=== PATIENT | male | born 1935 | race Caucasian/White ===

== ENCOUNTER → 2017-02-10 | Day surgery (SDC) | payer BC, MEDICARE ==
[~2017-02-10] VITALS: Ht 182.9 cm; Wt 81.8 kg
[~2017-02-10] MED LIST: AMB10 PO; ASPI81TA28 PO; FEXO3TAB PO; IPRA1AER2 INH; LIDOCAINE HCL 2% 2 ML VIAL (20MG/ML) ONE; LSX40 PO; MULT-506 PO; POTA-327 PO; PROPOFOL IV EMULSION 10 MG/ML 20 ML VIAL IV ONE; RIVA1TAB4 PO; SILD100T PO; SOTA120T PO; TNR25 PO; VLM2 PO; ZCR10 PO
[2017-02-10 06:55] VITALS: BP 134/94; PULSE 78; TEMP 36.5; O2SAT 95
[2017-02-10 07:14] VITALS: Ht 182.9 cm; Wt 81.8 kg
--- NOTE | 2017-02-10 07:15 | History & Physical Bridge Note ---
H&P Re-Evaluation Bridge Note: I have examined the patient, reviewed the History & Physical and in the interval since the performance of the History & Physical I have noted the following changes of clinical significance: Still in AF
[2017-02-10 07:51] VITALS: BP 125/91; PULSE 98; O2SAT 99
[2017-02-10 07:54] VITALS: BP 129/80; PULSE 70; O2SAT 99
--- NOTE | 2017-02-10 08:08 | Anesthesiology Progress Note ---
Anesthesia Post Op Note Date & Time Feb 10, 2017 at 08:07 Vital Signs Pain Intensity: 0 Vital Signs Past 12 Hours Date Time Temp Pulse Resp B/P (MAP) Pulse Ox O2 Delivery O2 Flow Rate FiO2 02/10/17 07:56 72 16 122/83 (96) 99 Nasal Cannula 6 02/10/17 07:54 70 16 129/80 99 Nasal Cannula 6 02/10/17 07:51 98 16 125/91 99 Nasal Cannula 02/10/17 06:55 36.5 78 16 134/94 95 Room Air Notes Mental Status: alert / awake / arousable, participated in evaluation Pt Amnestic to Procedure: Yes Nausea / Vomiting: adequately controlled Pain: adequately controlled Airway Patency, RR, SpO2: stable & adequate BP & HR: stable & adequate Hydration State: stable & adequate Anesthetic Complications: no major complications apparent
--- NOTE | 2017-02-10 08:12 | Discharge Instructions ---
Discharge Instructions Procedure Procedure Date: Feb 10, 2017. Reason for Visit: *,W/Anesthesia A Fib. Discharge Discharge Date: Feb 10, 2017. Discharge Diagnosis: atrial fibrillation Last Recorded Wt (Kilograms): 81.8 Medications Stopped Medication(s): none Anesthesia Post Anesthesia Instructions: If you have had General Anesthesia or IV Sedation: * Do not drive today. * Resume driving when surgeon permits. * Do not make important decisions or sign legal documents today. * Call surgeon for: 1. Temperature elevations greater than 101 degrees F. 2. Uncontrollable pain. 3. Excessive bleeding. 4. Persistent nausea and vomiting. 5. Medication intolerance (nausea, vomiting or rash). * For nausea and vomiting use only clear liquids such as: tea, soda, bouillon until nausea subsides, then gradually increase diet as tolerated. * If you have any concerns or questions, call your surgeon's office. If physician is unavailable and it is an emergency, call 911 or go to the nearest emergency room. Instructions Activity Recommendations: driving or machine use limit Return to School/Work: with no limitations Recommended Home Diet: resume previous diet Allergies: Coded Allergies: No Known Allergies (Unverified , 07/17/16) Follow Up [facility] Recommendations: Call your doctor if: * Temperature above 101 degrees * Pain not relieved by pain medicine ordered * There is increased drainage or redness from any incision * You have any unanswered questions or concerns. Your Doctors Instructions noted above were prepared by provider Matt Giles. Patient Signature Section: Patient Instructions Signature Page Kwesi Mayfield Patient (or Guardian) Signature/Date: I have read and understand the instructions given to me by my caregivers. Caregiver/RN/Doctor Signature/Date: The above-named patient and/or guardian has received patient instructions on this date. + Original Patient Signature Page (only) stays with chart. Please make copy for patient.
[2017-02-10 08:41] VITALS: BP 109/70; PULSE 68; O2SAT 98
--- NOTE | 2017-02-10 09:15 | CARDIOVERSION ---
DATE OF OPERATION: 02/10/2017 CARDIOVERSION REPORT PROCEDURE PERFORMED: Electrical cardioversion. STAFF COPYING MACHINE REPAIRER: Dr. Rodrigo Giles. INDICATIONS: Mr. Kwesi Mayfield is an 81-year-old gentleman with a history of paroxysmal atrial fibrillation who recently experienced symptoms associated with return of his arrhythmia. The patient is on sotalol and Xarelto and based on the recurrent nature of his arrhythmia and the associated symptoms he was advised to consider cardioversion today. PROCEDURE IN DETAIL: The patient was informed of the risks, benefits and alternatives to the intended procedure. He understood such and wished to proceed. He was taken to the cardiac catheterization holding area in a fasting state. A general anesthetic was administered by the anesthesiology service and once appropriately anesthetized the patient underwent cardioversion using 200 joules delivered in a biphasic fashion. This returned the patient to a sinus rhythm. The patient was neurologically intact following the procedure. There were no immediate complications. IMPRESSION: Successful cardioversion from atrial fibrillation to normal sinus rhythm. I attest to the content of the Intraoperative Record and any orders documented therein. Any exception s are noted below.
--- NOTE | 2017-02-10 09:16 | CARDIOLOGY PROGRESS NOTE ---
DATE: 02/10/2017 DATE: 02/10/2017. I performed a complete pacemaker interrogation with the patient's dual chamber [employer] device. The patient had normal sensing and threshold parameters on both leads subsequent to cardioversion. A complete report was printed out and scanned into the medical record.
== END | disposition home or self-care (01) ==
LOC: C.CATH 06:48
PROVIDERS: ATTEND Internal Medicine Clinical Cardiac Electrophysiology
DX: I48.91 Unspecified atrial fibrillation (principal); I25.10 Atherosclerotic heart disease of native coronary artery without angina pectoris; I51.9 Heart disease, unspecified; E78.5 Hyperlipidemia, unspecified; I10 Essential (primary) hypertension; R06.02 Shortness of breath; Z95.0 Presence of cardiac pacemaker; Z82.0 Family history of epilepsy and other diseases of the nervous system; Z83.49 Family history of other endocrine, nutritional and metabolic diseases; Z82.49 Family history of ischemic heart disease and other diseases of the circulatory system; Z95.5 Presence of coronary angioplasty implant and graft

== ENCOUNTER → 2017-03-31 | Outpatient (CLI) | payer BC, MEDICARE ==
[~2017-03-31] MED LIST changes: -ASPI81TA28 PO; -FEXO3TAB PO; -IPRA1AER2 INH; -LIDOCAINE HCL 2% 2 ML VIAL (20MG/ML) ONE; -MULT-506 PO; -PROPOFOL IV EMULSION 10 MG/ML 20 ML VIAL IV ONE; -TNR25 PO; -VLM2 PO
--- NOTE | 2017-03-31 12:19 | DIAGNOSTIC IMAGING REPORT ---
CHEST 2 VIEWS ROUTINE HISTORY: Left-sided chest pain. COMPARISON: Chest CT 07/20/2016. FINDINGS: The heart is normal in size. Left-sided dual-chamber pacemaker. No pleural effusions. No pneumothorax. The left lung appears clear. No rib fractures identified. Hazy patchy airspace opacities within the right upper lobe. IMPRESSION: 1. No pneumothorax. 2. There are new hazy patchy airspace opacities within the right upper lobe. This could represent a pneumonia. Follow-up chest x-ray or chest CT in one month is recommended to ensure resolution. Electronically signed by: Alex John M.D. 03/31/2017 12:18 PM Dictated Date/Time: 03/31/2017 12:15 PM
== END | disposition home or self-care (01) ==
LOC: C.RAD1850 11:37
PROVIDERS: ATTEND Student in an Organized Health Care Education/Training Program
DX: R07.9 Chest pain, unspecified (principal); R93.8 Abnormal findings on diagnostic imaging of other specified body structures

== ENCOUNTER 2024-07-19 10:22 | Observation (INO) ==
[2024-07-19] MEDS: OPTIRAY 320 125ml IV ONE (10:29)
--- NOTE | 2024-07-19 10:46 | CT Scan Report ---
CT head/brain wo con CLINICAL HISTORY: 89 years-old Male with Neuro deficit, acute, stroke suspected. Acute stroke like s ymptoms TECHNIQUE: Multiple axial CT images of the head were obtained without contrast. A dose lowering tech nique was utilized adhering to the principles of ALARA. CT DOSE: 2068.67 mGy.cm COMPARISON: CTA head and neck of same day FINDINGS: No acute intracranial hemorrhage, midline shift, intracranial mass, hydrocephalus, territorial ischem ia or abnormal extra-axial collection. Involutional changes with chronic microvascular ischemic disea se. Chronic left thalamic lacunar infarct. The calvarium is intact. Mild mucosal thickening of the ethmoid air cells. The mastoid air cells are clear. Unremarkable soft tissues. IMPRESSION: No acute intracranial abnormality identified. ACT 112: Negative or not required by law. The above report was generated using voice recognition software. It may contain grammatical, syntax o r spelling errors. Electronically signed by: Arpan Cox M.D. 07/19/2024 10:44 AM
--- NOTE | 2024-07-19 10:51 | CT Scan Report ---
CT angio neck with con CLINICAL HISTORY: 89 years-old Male with R sided facial droopp. Acute stroke like symptoms COMPARISON STUDY: CTA of the head of same day, chest radiograph of same day TECHNIQUE: Following the IV administration of 119 mL of Optiray, CT angiogram of the neck was perform ed from the aortic arch to the skull base. Images are reviewed in the axial, sagittal, and coronal pl anes. 3-D MIPS images are created and assessed. IV contrast was administered without complication. Al l measurements were calculated based on NASCET criteria. A dose lowering technique was utilized adhe ring to the principles of ALARA. FINDINGS: Moderate atherosclerosis of the thoracic aortic arch. Atherosclerosis of the common carotid arteries without high-grade stenosis. Moderate to advanced atherosclerotic plaque of the left carotid bulb cau ses 50% stenosis of the proximal cervical segment left ICA. Extensive atherosclerosis of the right ca rotid bulb causes 80% stenosis of the proximal right ICA. The remaining internal carotid arteries angela ear patent. Calcified plaque causes high-grade stenosis at the origin of the vertebral arteries which are codomin ant and otherwise patent. Patent basilar artery. There are layering pleural effusions, right greater than left. No pneumothorax. Suggested pulmonary e petrona with dependent atelectasis. Subcentimeter hypodense thyroid nodules. Degenerative changes of the cervical spine. Mild mucosal thickening of the paranasal sinuses. IMPRESSION: 1. Severe atherosclerosis of the right carotid bulb results in high-grade stenosis within the proxima l cervical segment right ICA. 2. High-grade stenosis also noted at the origin of the vertebral arteries bilaterally. 3. Right greater than left layering pleural effusions with probable pulmonary edema. ACT 112: Negative or not required by law. The above report was generated using voice recognition software. It may contain grammatical, syntax o r spelling errors. Electronically signed by: Arpan Cox M.D. 07/19/2024 10:48 AM
--- NOTE | 2024-07-19 10:55 | CT Scan Report ---
CTA ANGIOGRAPHY OF THE HEAD CLINICAL HISTORY: Right-sided facial droop. COMPARISON STUDY: No previous studies for comparison. TECHNIQUE: Helical axial images of the head were obtained following uneventful intravenous administr ation of 119 cc of Optiray. Sagittal and coronal reconstructions were viewed as well as maximal inten sity projections on an independent 3-D workstation. Automated exposure control was utilized for the study. A dose lowering technique was utilized adhering to the principles of ALARA. FINDINGS: Please note that the head CT will be reported separately. The bilateral M1, M2, A1 and A2 s egments are patent. There is moderate atherosclerotic plaque within the bilateral cavernous carotids which results in mild stenosis. No vessel occlusion is identified on this examination. The posterior circulation is intact. There is no intracranial aneurysm. There is no dissection within the intracran ial vessels. IMPRESSION: No large vessel occlusion. No intracranial aneurysm. ACT 112: Negative or not required by law. Electronically signed by: Mehran Aponte M.D. 07/19/2024 10:53 AM
--- NOTE | 2024-07-19 11:02 | CT Scan Report ---
CT facial bones w con CLINICAL HISTORY: Facial droop; ?dental infection COMPARISON STUDY: No previous studies for comparison. TECHNIQUE: Axial images of the face were obtained following intravenous injection of 119 cc Optiray 3 20 IV. Sagittal and coronal reformats were viewed. Automated exposure control was utilized for the st udy. A dose lowering technique was utilized adhering to the principles of ALARA. FINDINGS: Please note that the CTA of the neck and head will be reported separately. There are severa l dental caries. Multiple teeth are absent. Moderate mucosal thickening of the right maxillary sinus is noted. There is right facial stranding overlying the anterolateral aspect of the right hemimandibl e and maxilla. No rim-enhancing fluid collection is identified to suggest an abscess. There is no sof t tissue gas. Epiglottis is normal. The parotid and submandibular glands are normal. IMPRESSION: Several dental caries and multiple absent teeth. Right facial inflammation consistent wit h cellulitis, likely odontogenic in etiology. No abscess identified. ACT 112: Negative or not required by law. Electronically signed by: Mehran Aponte M.D. 07/19/2024 11:00 AM
--- NOTE | 2024-07-19 11:08 | Emergency Department Note ---
Impression & Plan Facial droop, Carotid stenosis, right, Stenosis of both vertebral arteries, History of atrial fibrillation, Pneumonia, Dental caries ED Provider Note NAME: RUIZ URENA AGE: 89 SEX: M : 1935 ARRIVES VIA: Ambulance INFORMANT: Patient, EMS report ED PROVIDER(S): Gabino Blount MD CHIEF COMPLAINT: Stroke alert MEDICAL DECISION MAKING: Patient presents due to concern for stroke alert and right-sided facial droop. No other acute symptoms at this time. Patient is on Eliquis not a TNK candidate. IV was established and blood work was obtained patient was immediately taken to CAT scan. No obvious bleed on noncontrast CT of the head. Blood work shows a white count of 11.5. Hemoglobin of 13.3. The patient's platelet count is unremarkable. INR of 1.6. Kidney function is unremarkable electrolytes grossly unremarkable with BSG 105. Patient's chest x-ray did show concern for pleural effusion possible pneumonia at the right base. Patient's face CT does show dental carious and facial inflammation no evidence of abscess. The patient's Noncon CT of the head read as negative CT of the head negative. The patient's neck CTA did show atherosclerosis 80% narrowing of the proximal right ICA as well as high-grade stenosis of the origin of vertebral arteries bilaterally. Given these findings I did speak with telestroke Dr. Pearson did evaluate the patient via telestroke. Patient current NIH only positive for the patient's right-sided facial droop. After further discussion with Dr. Pearson she recommended aspirin and atorvastatin to be given now. She was recommended MRI echocardiogram lipid panel A1c. Recommendations as conveyed were forwarded to the inpatient medicine service. She recommended nonemergent vascular consultation for the narrowing. This does not require emergent transfer at this time. Patient reportedly does have a history of aspiration and given the findings on chest x-ray the patient was ordered Augmentin. I did convey this to the patient and the patient's family member at bedside and subsequently did speak with the on-call medicine service Dr. Johnson and the patient was admitted to medicine service. Critical Care: I have personally spent 40 minutes of critical care time in direct management of this patient. This includes bedside care, interpretation of diagnostic studies, and testing, discussion with consultants, patient, and family members, and other require inpatient management activities. This 40 minutes is in excess of all separately billable procedures. Discussion w/ other healthcare providers: Dr. Pearson telestroke neurology Dr. Johnson inpatient medicine service Prior /Outside records reviewed: None Differential diagnosis: Infection, dehydration, metabolic abnormality, hypo/hyperglycemia, electrolyte imbalance, anemia, UTI, pneumonia, thyroid dysfunction among others were considered. Diagnostics, as interpreted by me: ECG: V paced rhythm, rate of 70, wide QRS, left axis deviation right bundle branch block pattern. No obvious STEMI. Cardiac monitoring: An order was placed for continuous cardiac monitoring. The monitor shows a rate of 72 with paced rhythm. Patient was placed on pulse oximetry Medical decision rules: None Imaging studies: I informally interpreted the patient's CT head does not show obvious ICH with formal report to follow. HPI: Patient presents due to concern for right-sided facial droop. Initial EMS report was that he woke up at 7 was normal went back to bed and then when he woke up he had right-sided facial droop. The patient did have concerns for recent right-sided dental infection and was seen yesterday by the dentist and started on amoxicillin. Patient states that he does have some associated right- sided upper dental pain. The patient denies any numbness or weakness of any extremity. No headache or neck pain. Last time that he had a fall was several months ago. Patient does take Eliquis chronically. Patient did have a prior stroke but was able to rehab through any deficits and did not have any. Per patient he woke up around 945 and his noticed that he had some right-sided facial drooping. Patient has not had any associated dysarthria or aphasia. EMS did not notice any other findings with the exception of the right-sided facial droop. PAST MEDICAL HISTORY: See Below PAST SURGICAL HISTORY: See Below SOCIAL HISTORY: See Below HOME MEDICATIONS: See Below ALLERGIES: See Below VITALS: See Below PHYSICAL EXAMINATION: GENERAL: NAD, non-toxic. EYE EXAM: Normal conjunctiva. PERRL, no anisocoria and EOM's grossly intact w/o pain. OROPHARYNX: Moist mucus membranes, grossly normal dentition. NECK: Trachea midline, no stridor. Supple, no nuchal rigidity, no adenopathy, non-tender. No signs of meningismus. FROM of the neck with good chin to chest and neck extension. Chest: Device noted to the left chest LUNGS: Clear to auscultation. Normal chest wall mechanics. HEART: Regular rhythm, no MRG. ABDOMEN: Abdomen soft, non-tender, no masses, no rebound or guarding. BACK: No CVA TTP. SKIN: No rashes and no bruising. UPPER EXTREMITIES: Upper extremities are grossly normal. LOWER EXTREMITIES: Grossly normal, no edema. NEURO EXAM: A&O x3, cranial nerves II-XII grossly intact with the exception of right-sided facial droop with asymmetric grimace but able to raise his eyebrows and insufflate his cheeks, normal speech, moves all 4 extremities. Past Med/Surg History Problem List (Updated 07/19/24 @ 15:23 by Gabino Blount MD) History of atrial fibrillation (Acute) Stenosis of both vertebral arteries (Acute) Carotid stenosis, right (Acute) Facial droop (Acute) Dental caries (Acute) Pneumonia (Acute) Stroke-like symptoms Pacemaker Stented coronary artery Paroxysmal atrial fibrillation Atrial fibrillation (Chronic) Coronary artery disease Diastolic dysfunction Hyperlipidemia Hypertension Insomnia Atrial fibrillation Acute right eye pain (Acute) Medical History Diverticulitis Hernia, inguinal, right Social History Smoking Status: Unknown if ever smoked Tobacco Type: Pipe and Cigars Preferred Language: Uzbek Feels Safe at Home: Yes Allergies Allergies Allergy/AdvReac Type Severity Reaction Status Date / Time Milk Containing Products Allergy Severe Cow's Unverified 07/19/24 13:28 (Dairy) cream/Butter/Cream - GI Upset Home Meds Home Medications Medication Instructions Recorded Confirmed aspirin 81 mg chewable tablet 81 mg PO DAILY #30 tabs 05/10/19 07/19/24 rivaroxaban 20 mg tablet 20 mg PO DAILY #90 tabs 05/10/19 07/19/24 zolpidem 10 mg tablet 10 mg PO HS PRN sleep 05/10/19 07/19/24 cholecalciferol (vitamin D3) 50 50 mcg PO DAILY 07/08/22 07/19/24 mcg (2,000 unit) capsule (Vitamin D3) multivitamin 1 tab PO DAILY 07/08/22 07/19/24 furosemide 20 mg tablet 20 mg PO DAILY 05/03/24 07/19/24 atorvastatin 40 mg tablet 40 mg PO HS 07/19/24 07/19/24 losartan 25 mg tablet 12.5 mg PO DAILY 07/19/24 07/19/24 penicillin V potassium 500 mg 500 mg PO QID 07/19/24 07/19/24 tablet sotalol 80 mg tablet 80 mg PO BID 07/19/24 07/19/24 Results & Data (ED) Vital Signs Vital Signs - 24 hr 07/19/24 10:22 07/19/24 10:48 07/19/24 12:23 Temperature 36.6 C Temperature Source Oral Pulse Rate 70 81 Pulse Rate [Apical] Respiratory Rate 18 Respiratory Effort / Characteristics Non-Labored Spontaneous Respiratory Depth Normal Respiratory Pattern Regular Blood Pressure 135/73 Blood Pressure [Right Arm] Blood Pressure Mean 93 Blood Pressure Mean [Right Arm] Blood Pressure Position [Right Arm] Pulse Oximetry 95 Oxygen Delivery Method Room Air Sepsis Recent Fever Within 48 Hours No Sepsis New/Unexplained Change in Mental Status No Sepsis Action Taken by Nursing No Action Required 07/19/24 12:27 07/19/24 14:16 Temperature Temperature Source Pulse Rate Pulse Rate [Apical] 73 75 Respiratory Rate 16 20 Respiratory Effort / Characteristics Respiratory Depth Respiratory Pattern Blood Pressure Blood Pressure [Right Arm] 163/90 H 163/99 H Blood Pressure Mean Blood Pressure Mean [Right Arm] 114 120 Blood Pressure Position [Right Arm] Semi-fowlers Semi-fowlers Pulse Oximetry 97 96 Oxygen Delivery Method Room Air Room Air Sepsis Recent Fever Within 48 Hours Sepsis New/Unexplained Change in Mental Status Sepsis Action Taken by [facility] Medications Current Medication List: was personally reviewed by me Laboratory Data Attestation: I reviewed the patient's lab results. 07/19/24 10:55 07/19/24 12:10 Lab Results 07/19/24 07/19/24 07/19/24 Range/Units 10:41 10:55 12:10 WBC 11.56 H (4.8-10.8) K/ul RBC 4.35 L (4.70-6.10) M/uL Hgb 13.3 L (14.0-18.0) g/dl Hct 39.6 L (42.0-52.0) % MCV 91.0 (80.0-100.0) fL MCH 30.6 (25.0-34.0) pg MCHC 33.6 (32.0-36.0) g/dL RDW Std Deviation 51.2 H (36.4-46.3) fL RDW Coeff of Ruby 15.4 H (11.5-14.5) % Plt Count 174 (130-400) K/uL MPV 10.5 (9.4-12.4) fL PT 16.7 H (9.0-12.0) Seconds INR 1.6 H (0.9-1.1) APTT 40 H (21-31) Seconds PTT Ratio 1.5 Sodium 137 (136-145) mmol/L Potassium TNP 3.9 Chloride 102 (98-107) mmol/L Carbon Dioxide 29 (21-32) mmol/L Anion Gap 6 (3-11) BUN 23 (6-23) mg/dl Creatinine 1.27 (0.6-1.4) mg/dl Est Cr Clr Drug Dosing 39.3 ml/min eGFR 54.00 BUN/Creatinine Ratio 18.1 (10-20) Glucose 83 (70-99(Fasting)) mg/dl POC Glucose 105 H (70-99) mg/dl Calcium 8.7 (8.6-10.3) mg/dl Magnesium 2.3 (1.7-2.4) mg/dl Total Bilirubin 0.5 (0.2-1.0) mg/dl AST TNP 18 ALT 13 (7-52) U/L Alkaline Phosphatase 49 (34-104) U/L Total Protein 6.0 (6.0-8.3) gm/dl Albumin 3.4 (3.4-5.0) gm/dl Globulin 2.6 (2.5-4.0) gm/dl Albumin/Globulin Ratio 1.3 (0.9-2) Administered Medications Discontinued Medications Amoxicillin/Clavulanate Potassium (Amoxicillin/Clavulanate 875 Mg Tab) 1 tab PO NOW ONE; Protocol Stop: 07/19/24 13:15 Last Admin: 07/19/24 14:14 Dose: 1 tab Documented By: CEF Aspirin (Aspirin Chew 324 Mg) 81 mg PO NOW STA Stop: 07/19/24 13:00 Last Admin: 07/19/24 13:09 Dose: 81 mg Documented By: CEF Atorvastatin Calcium (Atorvastatin 40 Mg Tab) 80 mg PO NOW STA Stop: 07/19/24 13:00 Last Admin: 07/19/24 14:19 Dose: 40 mg Documented By: CEF Ioversol (Optiray 320 125ml) 119 ml IV ONCE ONE Stop: 07/19/24 10:28 Last Admin: 07/19/24 10:29 Dose: 119 ml Documented By: REINIER Imaging Data Radiologist's Impression: Chest X-Ray 07/19/24 10:22 XR chest 1V portable CLINICAL HISTORY: stroke alert COMPARISON STUDY: Chest CT July 22, 2016. Chest radiograph July 08, 2022. FINDINGS: A left subclavian pacer is unchanged in position. Cardiomegaly is unchanged. There is no pneumothorax. A moderate size right pleural effusion is present. There is associated right basilar opacity. Mild interstitial thickening is present. IMPRESSION: Cardiomegaly with mild interstitial pulmonary edema and a moderate size right pleural effusion with right basilar opacity which could reflect atelectasis or pneumonia. Radiographic follow-up to ensure resolution is recommended. ACT 112: Negative or not required by law. Electronically signed by: Mehran Aponte M.D. 07/19/2024 11:[address] 07/19/24 10:22 CT facial bones w con CLINICAL HISTORY: Facial droop; ?dental infection COMPARISON STUDY: No previous studies for comparison. TECHNIQUE: Axial images of the face were obtained following intravenous injection of 119 cc Optiray 320 IV. Sagittal and coronal reformats were viewed. Automated exposure control was utilized for the study. A dose lowering technique was utilized adhering to the principles of ALARA. FINDINGS: Please note that the CTA of the neck and head will be reported separately. There are several dental caries. Multiple teeth are absent. Moderate mucosal thickening of the right maxillary sinus is noted. There is right facial stranding overlying the anterolateral aspect of the right hemimandible and maxilla. No rim-enhancing fluid collection is identified to suggest an abscess. There is no soft tissue gas. Epiglottis is normal. The parotid and submandibular glands are normal. IMPRESSION: Several dental caries and multiple absent teeth. Right facial inflammation consistent with cellulitis, likely odontogenic in etiology. No abscess identified. ACT 112: Negative or not required by law. Electronically signed by: Mehran Aponte M.D. 07/19/2024 11:[address] 07/19/24 10:22 CT head/brain wo con CLINICAL HISTORY: 89 years-old Male with Neuro deficit, acute, stroke suspected. Acute stroke like symptoms TECHNIQUE: Multiple axial CT images of the head were obtained without contrast. A dose lowering technique was utilized adhering to the principles of ALARA. CT DOSE: 2068.67 mGy.cm COMPARISON: CTA head and neck of same day FINDINGS: No acute intracranial hemorrhage, midline shift, intracranial mass, hydrocephalus, territorial ischemia or abnormal extra-axial collection. Involutional changes with chronic microvascular ischemic disease. Chronic left thalamic lacunar infarct. The calvarium is intact. Mild mucosal thickening of the ethmoid air cells. The mastoid air cells are clear. Unremarkable soft tissues. IMPRESSION: No acute intracranial abnormality identified. ACT 112: Negative or not required by law. The above report was generated using voice recognition software. It may contain grammatical, syntax or spelling errors. Electronically signed by: Arpan Cox M.D. 07/19/2024 10:44 AM Head CTA 07/19/24 10:22 CTA ANGIOGRAPHY OF THE HEAD CLINICAL HISTORY: Right-sided facial droop. COMPARISON STUDY: No previous studies for comparison. TECHNIQUE: Helical axial images of the head were obtained following uneventful intravenous administration of 119 cc of Optiray. Sagittal and coronal reconstructions were viewed as well as maximal intensity projections on an independent 3-D workstation. Automated exposure control was utilized for the study. A dose lowering technique was utilized adhering to the principles of ALARA. FINDINGS: Please note that the head CT will be reported separately. The bilateral M1, M2, A1 and A2 segments are patent. There is moderate atherosclerotic plaque within the bilateral cavernous carotids which results in mild stenosis. No vessel occlusion is identified on this examination. The posterior circulation is intact. There is no intracranial aneurysm. There is no dissection within the intracranial vessels. IMPRESSION: No large vessel occlusion. No intracranial aneurysm. ACT 112: Negative or not required by law. Electronically signed by: Mehran Aponte M.D. 07/19/2024 10:53 AM Neck CTA 07/19/24 10:22 CT angio neck with con CLINICAL HISTORY: 89 years-old Male with R sided facial droopp. Acute stroke like symptoms COMPARISON STUDY: CTA of the head of same day, chest radiograph of same day TECHNIQUE: Following the IV administration of 119 mL of Optiray, CT angiogram of the neck was performed from the aortic arch to the skull base. Images are reviewed in the axial, sagittal, and coronal planes. 3-D MIPS images are created and assessed. IV contrast was administered without complication. All measurements were calculated based on NASCET criteria. A dose lowering technique was utilized adhering to the principles of ALARA. FINDINGS: Moderate atherosclerosis of the thoracic aortic arch. Atherosclerosis of the common carotid arteries without high-grade stenosis. Moderate to advanced atherosclerotic plaque of the left carotid bulb causes 50% stenosis of the proximal cervical segment left ICA. Extensive atherosclerosis of the right carotid bulb causes 80% stenosis of the proximal right ICA. The remaining internal carotid arteries appear patent. Calcified plaque causes high-grade stenosis at the origin of the vertebral arteries which are codominant and otherwise patent. Patent basilar artery. There are layering pleural effusions, right greater than left. No pneumothorax. Suggested pulmonary edema with dependent atelectasis. Subcentimeter hypodense thyroid nodules. Degenerative changes of the cervical spine. Mild mucosal thickening of the paranasal sinuses. IMPRESSION: 1. Severe atherosclerosis of the right carotid bulb results in high-grade stenosis within the proximal cervical segment right ICA. 2. High-grade stenosis also noted at the origin of the vertebral arteries bilaterally. 3. Right greater than left layering pleural effusions with probable pulmonary edema. ACT 112: Negative or not required by law. The above report was generated using voice recognition software. It may contain grammatical, syntax or spelling errors. Electronically signed by: Arpan Cox M.D. 07/19/2024 10:48 AM Discharge Plan Visit Data Chief Complaint: Stroke Alert Stated Complaint: STROKE ALERT ED Provider: Gabino Blount Discharge Problem: Facial droop, Carotid stenosis, right, Stenosis of both vertebral arteries, History of atrial fibrillation, Pneumonia, Dental caries Forms Stand Alone Forms: [facility] [employer] Prescriptions Prescriptions: No Action Xarelto 20 mg tablet 20 mg PO DAILY Qty: 90 aspirin 81 mg tablet,chewable 81 mg PO DAILY Qty: 30 zolpidem 10 mg tablet 10 mg PO HS PRN (Reason: sleep) furosemide 20 mg tablet 20 mg PO DAILY multivitamin Tablet 1 tab PO DAILY cholecalciferol (vitamin D3) [Vitamin D3] 50 mcg (2,000 unit) Capsule 50 mcg PO DAILY sotalol 80 mg tablet 80 mg PO BID penicillin V potassium 500 mg tablet 500 mg PO QID Rx Instructions: Start Date 07/18/24 x7 day supply atorvastatin 40 mg Tablet 40 mg PO HS losartan 25 mg Tablet 12.5 mg PO DAILY Referrals Referrals: Antonio Contreras DO [Primary Care Provider] - Discharge Problem: Pneumonia Qualifiers: Pneumonia type: due to unspecified organism Laterality: right Lung location: l ower lobe of lung Qualified Code(s): J18.9 - Pneumonia, unspecified organism
[2024-07-19 11:12] LABS: Hematocrit (blood only) 39.6 % (42.0-52.0); Hemoglobin 13.3 g/dl (14.0-18.0); Mean Corpuscular Hemoglobin 30.6 pg (25.0-34.0); Mean Corpuscular Hgb Conc 33.6 g/dL (32.0-36.0); Mean Platelet Volume 10.5 fL (9.4-12.4); Platelet Count 174 K/uL (130-400); RDW Coefficient of Variation 15.4 % (11.5-14.5); RDW Standard Deviation 51.2 fL (36.4-46.3); Red Blood Count 4.35 M/uL (4.70-6.10); White Blood Count 11.56 K/ul (4.8-10.8)
--- NOTE | 2024-07-19 11:17 | XRay Report ---
XR chest 1V portable CLINICAL HISTORY: stroke alert COMPARISON STUDY: Chest CT July 22, 2016. Chest radiograph July 08, 2022. FINDINGS: A left subclavian pacer is unchanged in position. Cardiomegaly is unchanged. There is no pn eumothorax. A moderate size right pleural effusion is present. There is associated right basilar opac ity. Mild interstitial thickening is present. IMPRESSION: Cardiomegaly with mild interstitial pulmonary edema and a moderate size right pleural eff usion with right basilar opacity which could reflect atelectasis or pneumonia. Radiographic follow-up to ensure resolution is recommended. ACT 112: Negative or not required by law. Electronically signed by: Mehran Aponte M.D. 07/19/2024 11:15 AM
[2024-07-19 11:41] LABS: INR 1.6 (0.9-1.1); Partial Thromboplastin Ratio 1.5; Partial Thromboplastin Time 40 Seconds (21-31); Prothrombin Time 16.7 Seconds (9.0-12.0)
[2024-07-19 12:00] LABS: Alanine Aminotransferase 13 U/L (7-52); Albumin Globulin Ratio 1.3 (0.9-2); Albumin Level 3.4 gm/dl (3.4-5.0); Alkaline Phosphatase 49 U/L (34-104); Anion Gap 6 (3-11); BUN Creatinine Ratio 18.1 (10-20); Bilirubin,Total 0.5 mg/dl (0.2-1.0); Blood Urea Nitrogen 23 mg/dl (6-23); Calcium 8.7 mg/dl (8.6-10.3); Carbon Dioxide 29 mmol/L (21-32); Chloride 102 mmol/L (98-107); Creatinine Clr Calc Pharmacy 39.3 ml/min; Globulin 2.6 gm/dl (2.5-4.0); Glucose 83 mg/dl (70-99(Fasting)); Magnesium 2.3 mg/dl (1.7-2.4); Sodium 137 mmol/L (136-145)
[2024-07-19 12:47] LABS: Potassium 3.9 mmol/L (3.5-5.1)
[2024-07-19] MEDS: ASPIRIN CHEW 324 MG PO STA (13:09)
--- NOTE | 2024-07-19 13:28 | History & Physical Report ---
Date of Service July 19, 2024 Assessment & Plan (1) Stroke-like symptoms: Plan: Likely TIA Patient presents with right sided facial droop Hx CVA ~ 3 yrs ago - CT head negative for acute changes, chronic left thalamic infarct - Neck/head CTA showed severe atherosclerosis of right carotid bulb, high-grade stenosis within proximal cervical segment right ICA, high-grade stenosis vertebral arteries bilaterally - No echo on file Telestroke: Suspect small stroke not seen on HCT. Stroke likely related to left carotid stenosis, chronic left thalamic stroke in the setting of left [employer]CH[employer]. Stenosis of right carotid artery likely not contributing to right-sided facial weakness. - Start aspirin 81 and atorvastatin 80 SHANE - HOB flat as tolerated and keep patient well-hydrated - Obtain brain MRI - permissive hypertension; labetalol use for systolic over 200 and diastolic over 100 - Obtain echo, A1c, fasting lipid panel, homocystine level, and local neurology follow-up - Consult vascular for symptomatic and asymptomatic carotid stenosis - continue atorvastatin 40 - likely does not need increased dosage although can reassess with AM lipid panel - MRI negative - Echo ordered - Telemetry monitoring - Q4H neuro checks - neurology consult Patient resides in [facility] for 6 months of the year; planning to go down there shortly. He would like all follow-up arranged down there. He would not like to see vascular here, he would like to just have follow-up in [place]. Given his age, he would not opt for surgical management in the acute setting. - to arrange vascular and neurology follow-up in [place] if MRI negative (2) Pneumonia: Plan: History of aspirations, on easy to chew diet likely early stages of aspiration pneumonia - leukocytosis, WBC 11.56 on admission - CXR showing mild interstitial pulmonary edema, moderate size pleural effusion, RLL atelectasis vs pneumonia - continue Augmentin 875 BID x 5 days (started in ED) - trend CBC (3) Dental caries: Plan: diagnosed 07/18, started penicillin with dentist possibly contributing to facial droop as no other focal neurologic deficits - face CT showed several dental caries, multiple absent teeth, right facial inflammation consistent with cellulitis - no concern for abscess at this time - will discontinue penicillin with start of Augmentin, will cover for dental caries (4) Coronary artery disease: Plan: History of LAD PCI 2007, RCA PCI 2008 - On baby aspirin and atorvastatin 40 at home - continue home baby aspirin, took this morning 07/19 - continue atorvastatin 40 - Lipid panel with a.m. labs (5) Paroxysmal atrial fibrillation: Plan: pacemaker status - EKG on admission Showing ventricular paced rhythm - Continue Xarelto - dose decrease from 20mg to 15mg as per pharmacy rec with [facility] - continue sotalol (6) Hypertension: Plan: - home Lasix, losartan with permissive hypertension - add labetalol with parameters prn Plan VTE ppx: continue Xarelto Diet: easy to chew, heart healthy diet Code status: DNR/DNI Dispo: Med/tele Admission and Anticipated Discharge Date Admission Date: 07/19/24 History of Present Illness Chief Complaint: stroke alert Primary Care Provider: Antonio Contreras DO Patient is an 89-year-old male with a past medical history of CVA, A-fib on Eliquis and pacemaker status, CAD, hyperlipidemia, hypertension. He presents today due to a facial droop that his noticed when he woke up this morning. The patient stated that he had difficulty waking up, he feels fatigued. He was seen by his dentist yesterday who prescribed him penicillin for right sided dental caries. He questions if his facial droop is caused by his ongoing dental concerns. He denies weakness, sensory deficits, ambulatory dysfunction, decreased strength. He also has a history of aspirating, he is on a soft, easy to chew diet. He does endorse dyspnea and chills that began yesterday. He did not take his temperature at home. Patient denies headache, dizziness, lightheadedness, vision changes, rhinorrhea, sore throat, cough, sputum production, chest pain, abdominal pain, nausea, vomiting, diarrhea, con stipation, edema, numbness, tingling. Him and his live in [facility] 6 months of the year, they are planning to return to [place]. They would like a follow-up arranged in [place]. Patient's was updated at bedside. Allergies Allergy/AdvReac Type Severity Reaction Status Date / Time Milk Containing Products Allergy Severe Cow's Unverified 07/19/24 13:28 (Dairy) cream/Butter/Cream - GI Upset Home Medications Medication Instructions Recorded Confirmed Type aspirin 81 mg chewable tablet 81 mg PO DAILY #30 tabs 05/10/19 07/19/24 History rivaroxaban 20 mg tablet 20 mg PO DAILY #90 tabs 05/10/19 07/19/24 History zolpidem 10 mg tablet 10 mg PO HS PRN sleep 05/10/19 07/19/24 History cholecalciferol (vitamin D3) 50 50 mcg PO DAILY 07/08/22 07/19/24 History mcg (2,000 unit) capsule (Vitamin D3) multivitamin 1 tab PO DAILY 07/08/22 07/19/24 History furosemide 20 mg tablet 20 mg PO DAILY 05/03/24 07/19/24 History atorvastatin 40 mg tablet 40 mg PO HS 07/19/24 07/19/24 History losartan 25 mg tablet 12.5 mg PO DAILY 07/19/24 07/19/24 History penicillin V potassium 500 mg 500 mg PO QID 07/19/24 07/19/24 History tablet sotalol 80 mg tablet 80 mg PO BID 07/19/24 07/19/24 History Past Med/Surg History Problem List (Updated 07/19/24 @ 15:23 by Gabino Blount MD) History of atrial fibrillation (Acute) Stenosis of both vertebral arteries (Acute) Carotid stenosis, right (Acute) Facial droop (Acute) Dental caries (Acute) Pneumonia (Acute) Stroke-like symptoms Pacemaker Stented coronary artery Paroxysmal atrial fibrillation Atrial fibrillation (Chronic) Coronary artery disease Diastolic dysfunction Hyperlipidemia Hypertension Insomnia Atrial fibrillation Acute right eye pain (Acute) Medical History Diverticulitis Hernia, inguinal, right Social History Smoking Status: Never smoker Tobacco Type: Pipe and Cigars Hx Alcohol Use: No Hx Substance Use: No Preferred Language: Macedonian Communication Ability: Effective 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 Non-toxic appearing. HEENT- EOMI, mucous membranes dry. Hearing grossly intact. Heart-normal S1 and S2. No murmurs, rubs or gallops. Lungs-clear bilaterally, no respiratory distress, no accessory muscle use. Abdomen-normal bowel sounds and soft. No ascites noted. Non-tender. Extremities- no clubbing, cyanosis, or edema. Rheumatologic-normal range of motion. Psychiatric-normal affect. Musculoskeletal: no cyanosis or clubbing, extremities motor strength 5/5 Skin: Mild swelling of right cheek Neurologic: PERRL, EOMI, accommodation nl, no face palsy, no dysarthria CN's II-XI intact bilaterally; no focal motor deficits Speech / Cognition: normal speech Results & Data Results & Data Vital Signs (Past 12 Hours) Vital Signs Temp Pulse Resp BP Pulse Ox O2 Del Method 07/19/24 12:23 81 07/19/24 10:48 36.6 C 07/19/24 10:22 70 18 135/73 95 Room Air Code Status & VTE Plan Code Status DNR/DNI VTE Prophylaxis Plan VTE Prophylaxis will be ordered: Yes Supervising Physician Co-Signing Physician Notes I personally saw and examined the patient. I independently reviewed the labs, EKG, imaging, problem list, medication list, past medical history and family history. I verified all phelps points and agree with Mariola Zuniga PA-C with the following exceptions and/or additions: A/P Suspected TIA - will consult neurology to decide regarding addition clopidogrel to already taking aspirin and Xarelto. Vascular consult deferred in setting of no CVA seen on MRI. No need to allow permissive hypertension and anti- hypertensives restarted. TTE. Monitor on telemetry overnight. PNA/periodontal infection - switch antibiotics to Augmentin PG Care Time/CCT Total # of Minutes Spent Total Time Spent with Patient: Total time spent is greater than 50% in coordination of care (as documented) at patient's floor/unit and/or counseling patient: Coding Level of Care Code 82191 INT INP/OBS CARE MIN Diagnoses Stroke-like symptoms R29.90 Pneumonia J18.9 Dental caries K02.9 Coronary artery disease I25.10 Paroxysmal atrial fibrillation I48.0 Hypertension I10
[2024-07-19] MEDS: AMOXICILLIN/CLAVULANATE 875 MG TAB PO ONE (14:14)
[2024-07-19] MEDS: ATORVASTATIN 40 MG TAB PO STA (14:19)
--- NOTE | 2024-07-19 15:19 | Magnetic Resonance Report ---
MR brain wo con HISTORY: 89 years-old Male R sided facial droop acute stroke like symptoms COMPARISON: Head CT of same day TECHNIQUE: Multiplanar multisequence MRI of the brain was obtained without IV contrast FINDINGS: No restricted diffusion to suggest acute or subacute infarct. Midline structures appear unremarkable. Degenerative changes of the imaged cervical spine. No acute intracranial hemorrhage, midline shift, abnormal extra-axial collection, hydrocephalus or intra-axial mass. No pathologic blooming artifact. Involutional changes with extensive and confluent T2/FLAIR hyperintense foci throughout the white mat ter. Cerebral venous sinuses and major arterial flow voids appear patent. Prior bilateral lens repair. Sku ll, orbits and soft tissues are unremarkable. Mild to moderate mucosal thickening of the right maxill zahraa sinus. IMPRESSION: 1. No acute intracranial abnormality. No acute or subacute infarct. 2. Involutional changes with advanced chronic microvascular ischemic disease. ACT 112: Negative or not required by law. The above report was generated using voice recognition software. It may contain grammatical, syntax o r spelling errors. Electronically signed by: Arpan Cox M.D. 07/19/2024 3:18 PM
[2024-07-19 16:12] VITALS: RESP 18
[2024-07-19] MEDS ORDERED: DOCUSATE SODIUM 100 MG CAP PO PRN (16:52)
[2024-07-19] MEDS ORDERED: LABETALOL HCL IV 5 MG/ML 20ML IV PRN (16:52)
[2024-07-19] MEDS ORDERED: ACETAMINOPHEN 325 MG TAB PO PRN (16:52)
[2024-07-19] MEDS ORDERED: AMOXICILLIN/CLAVULANATE 875 MG TAB PO SCH (17:00)
--- NOTE | 2024-07-19 18:11 | Electrocardiogram Report ---
Test Reason : Blood Pressure : */* mmHG Vent. Rate : 70 BPM Atrial Rate : 77 BPM P-R Int : * ms QRS Dur : 144 ms QT Int : 478 ms P-R-T Axes : * -80 90 degrees QTcB Int : 516 ms Ventricular-paced rhythm with intermittent AV paced complexes Abnormal ECG When compared with ECG of 08-Jul-2022 09:38, Ventricular pacing is now present Confirmed by Fadi Bunn ([id number]) on 07/19/2024 6:11:24 PM Referred By: REFERRED SELF Confirmed By: Fadi Bunn
[2024-07-19] MEDS: ZOLPIDEM TARTRATE 5 MG TAB PO PRN (21:29)
[2024-07-19] MEDS: SOTALOL HCL 80 MG TAB PO SCH (21:29)
[2024-07-19] MEDS: RIVAROXABAN 15 MG TAB PO ONE (22:14)
--- OUTSIDE RECORDS SUMMARY | 2024-07-19 23:32 | External Medical Summary | Continuity of Care Document ---
Author Name Unknown Organization [facility] [address] [place] [id number] Care Team Providers Care Oracle Soa Architect Name Role Phone Antonio Contreras Primary Care Physician [phone] Encounter [facility] [id number] Date(s): 07/12/24 - 07/12/24 [facility] 0 [facility] 207 [facility] Medical [facility] [address] [address] [phone] Encounter Diagnosis Body mass index [BMI] 21.0-21.9, adult(Discharge Diagnosis) - 07/12/24 Insomnia(Discharge Diagnosis) - 07/12/24 High blood pressure(Discharge Diagnosis) - 07/12/24 Hyperlipidemia(Discharge Diagnosis) - 07/12/24 Atrial fibrillation(Discharge Diagnosis) - 07/12/24 Insomnia, unspecified(Final) - Essential (primary) hypertension(Final) - Hammertoe of right foot(Discharge Diagnosis) - 07/12/24 Discharge Disposition: Home or Self Care Attending Physician: DO Contreras Franklin J Allergies, Adverse Reactions, Alerts No Known Allergies Assessment and Plan Extracted from: Title:General Exam * Author:DO Contreras Franklin J Date:07/12/24 Impression and Plan Diagnosis Hammertoe of right foot (HTW50-GD M20.41, Discharge, Medical). Atrial fibrillation (JCG25-IX I48.91, Discharge, Medical). High blood pressure (MVE27-UE I10, Discharge, Medical). Hyperlipidemia (HQT26-EG E78.5, Discharge, Medical). Plan: Paroxysmal Atrial Fib Exam today is unremarkable, regular rate and rhythm. He has cardiology both here and in [place]; cardiology note from May reviewed Continue current mediations Recommend BMP to check serum potassium and assure preserved renal function He has some LE edema, and compression hose would be helpful, although he has found this problematic to wear Encouraged elevation of LE for at least some part of the day Rash This is not new; I can see why podiatry tried steroid/antifungal combination, but does not seem to have made much of an improvement He has a dermatology appointment upcoming; discussed they may opt to biopsy for diagnosis (if small enough, probably could be done without holding DOAC, which would be optimal) Post CVA Fortunately, 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 Orders PowerOrders Laboratory: TSH Request (Order): Routine, 07/12/2024 10:33 EST, Requested Timeframe First Available Lipid Profile Request (Order): Routine, 07/12/2024 10:33 EST, Requested Timeframe First Available, Fasting CMP Request (Order): Routine, 07/12/2024 10:33 EST, Requested Timeframe First Available CBC w Platelets and Diff Request (Order): Routine, 07/12/2024 10:33 EST, Requested Timeframe First Available. PowerOrders Patient Care Ambulatory: Follow Up Appointment Ambulatory (Order): In 1 Year, Appointment Type In Office, 40, Follow up With DO Contreras Franklin J Evaluation and Management: [id number] Outpatient Visit Est Lvl 4 (Order): 07/12/2024 10:36 EST, FAMILY MEDICINE, High blood pressure | Atrial fibrillation | Hyperlipidemia. Immunizations Given and Recorded Vaccine Date Status Refusal Reason SARS-CoV-2 mRNA (tozinameran 5y-11y) 1 12/30/22 Re corded SARS-CoV-2 mRNA (tozinameran 5y-11y) 2 05/09/22 Re corded zoster vaccine, inactivated 3 03/15/22 Recorded SARS-CoV-2 (COVID-19) mRNA-1273 vaccine 01/04/22 R ecorded SARS-CoV-2 (COVID-19) mRNA-1273 vaccine 4 07/05/21 Recorded pneumococcal 13-valent vaccine 07/01/16 Recorded pneumococcal 23-valent vaccine 5 08/31/04 Recorded 1Result Comment: Per [facility] 2Result Comment: Bivalent booster 3Result Comment: [facility] 4Result Comment: 2021-07-10: Historical information-source unspecified 5Location History: Unsure of exacty date; after age 65. Medications Aspir 81 oral delayed release tablet Start: 03/31/17 9:57:00 AM EDT, 1 tab, PO, Daily Start Date: 03/31/17 Status: Ordered atorvastatin 40 mg oral tablet Start: 07/10/23 7:51:00 AM EST, 1 tab, PO, Daily Start Date: 07/10/23 Status: Ordered furosemide 40 mg oral tablet Start: 10/07/19 11:40:00 AM EST, See Instructions, Disp# 90 tab, Refills: 3, TAKE 1 TABLET BY MOUTH EVERY DAY, Pharmacy: [facility]acy #[id number] Start Date: 10/07/19 Status: Ordered losartan 25 mg oral tablet Start: 07/10/23 7:52:00 AM EST, 0.5 tab, PO, Daily Start Date: 07/10/23 Status: Ordered melatonin Start: 02/05/18 10:13:00 AM EDT, 5 mg =, PO, qhs Start Date: 02/05/18 Status: Ordered multivitamin Start: 12/11/15 7:44:00 AM EDT, 1 tab, PO, Daily Start Date: 12/11/15 Status: Ordered multivitamin Start: 07/12/24 9:50:00 AM EST, 1 tab, PO, Daily Start Date: 07/12/24 Status: Ordered sotalol 160 mg oral tablet Start: 09/25/23 6:24:00 PM EST, 1 tab, PO, bid, Disp# 180 tab, Refills: 2, Pharmacy: [id number] Start Date: 09/25/23 Status: Ordered Xarelto 20 mg oral tablet Start: 05/18/24 2:49:00 PM EDT, 1 tab, PO, qPM, Disp# 90 tab, Refills: 3, Pharmacy: [id number] Start Date: 05/18/24 Status: Ordered zolpidem 10 mg oral tablet Start: 04/19/24 4:57:00 PM EDT, 1 tab, PO, qhs, Disp# 90 tab, Refills: 3, Take as instructed, PRN: as needed for sleep, Pharmacy: [facility]/pharmacy #[id number] Start Date: 04/19/24 Status: Ordered Mental Status 07/12/24 Barriers to Learning one year None evide nt Problem List Condition Confirmation Course Effective Dates Status H ealth Status Informant BPH (benign prostatic hyperplasia) Confirmed Active Pacemaker Confirmed Active Hammertoe of right foot Confirmed Active Hyperlipidemia Confirmed Active High blood pressure Confirmed Active Insomnia Confirmed Active Microscopic hematuria Confirmed Active Nocturia more than twice per night Confirmed Active Need for shingles vaccine Confirmed Active Tobacco user Confirmed Active Diagnosis Diagnosis Type Effective Dates Health Status Clinical Service Informant Insomnia Discharge Diagnosis 07/12/24 Non-Specified High blood pressure Discharge Diagnosis 07/12/24 Non-Specified Hyperlipidemia Discharge Diagnosis 07/12/24 Non-Specified Atrial fibrillation Discharge Diagnosis 07/12/24 Non-Specified Body mass index [BMI] 21.0-21.9, adult Discharge Diagnosis 07/12/24 Non-Specified Hammertoe of right foot Discharge Diagnosis 07/12/24 Non-Specified Procedures Procedure Date Related Diagnosis Body Site Status CT of abdomen and pelvis wit h intravenous contrast 1 05/29/22 Completed THR - Total hip replacement 2 08/09/21 Completed Chest x-ray 3 03/31/17 Completed Electrical cardioversion 02/10/[address] - Computerised tomography ,chest without contrast 07/22/16 Completed Imaging,chest 07/17/16 Completed Shave biopsy 06/21/15 Completed Pacemaker 4 2009 Completed Hernia 5 1972 Completed Tonsil 6 1937 Completed Biopsy 7 Completed Mohs micrographic surgery 8 Completed Stent placement 9, 10 Com pleted 11. Extensive diverticulosis with possible mild diverticulitis in the descending colon. No evidence of perforation or abscess formation. 2. Extensive atherosclerosis. 3. Additional findings as above. 2right 3No pneumothroax. New hazy patchy airspace opacities in right upper lobe. Could represent pneumonia. f/u chest x-ray or chest CT in one month recommended. [id number] 5repair 6removal 43811 2008 2005 1997 83 times 92 cardiac 10Left main 2009, RCA 2011 Results Laboratory List Name Date Complete Blood Count w Differential (CBC ,DIFFH) 07/12/24 Comprehensive Metabolic Panel (COMP META B PANEL) 07/12/24 Lipid Profile (LIPOPROTEINS) 07/12/24 Thyroid Stimulating Hormone (TSH) Most recent to oldest [Reference Range]: 1 eGFR CKD-EPI [>60 mL/min/1.73 m2] 60 mL/ min/1.73 m2 1 *LOW* (07/12/24 10:53 AM) Non-HDL 77 mg/dL 2 (07/12/24 10:53 AM) Estimated CrCl 43.60 mL/min (07/12/24 12:30 PM) MPV [9.0-12.2 fL] 11.0 fL (07/12/24 10:53 AM) Immature Gran% 1.2 % (07/12/24 10:53 AM) Neut% 76.8 % (07/12/24 10:53 AM) Lymph% 7.9 % (07/12/24 10:53 AM) York% 11.6 % (07/12/24 10:53 AM) Baso% 0.6 % (07/12/24 10:53 AM) Eos% 1.9 % (07/12/24 10:53 AM) Immat Gran, Abs [0-0.4 K/uL] 0.11 K/uL (07/12/24 10:53 AM) Neut, Abs [2.0-7.7 K/uL] 7.12 K/uL (07/12/24 10:53 AM) Lymph, Abs [1.0-3.4 K/uL] 0.73 K/uL *LOW* (07/12/24 10:53 AM) York, Abs [0-1.0 K/uL] 1.08 K/uL *HI* (07/12/24 10:53 AM) Baso, Abs [0-0.1 K/uL] 0.06 K/uL (07/12/24 10:53 AM) Eos, Abs [0-0.5 K/uL] 0.18 K/uL (07/12/24 10:53 AM) Type of Diff: AUTO *Unknown* (07/12/24 10:53 AM) RDW [11.5-14.2 %] 15.4 % *HI* (07/12/24 10:53 AM) Anion Gap [5-14 mmol/L] 6 mmol/L (07/12/24 10:53 AM) Alb [3.5-5.0 g/dL] 3.9 g/dL (07/12/24 10:53 AM) Alk Phos [38-126 unit/L] 58 unit/L (07/12/24 1053 AM) ALT [<50 unit/L] 20 unit/L (07/12/24 10:53 AM) AST [15-46 unit/L] 51 unit/L *HI* (07/12/24 10:53 AM) BUN [7-20 mg/dL] 25 mg/dL *HI* (07/12/24 10:53 AM) Ca [8.4-10.2 mg/dL] 9.1 mg/dL (07/12/24 10:53 AM) Chol/HDL 3 (07/12/24 AM) Chol [125-200 mg/dL] 119 mg/dL *LOW* (07/12/24:53 AM) Cl- [96-107 mmol/L] 101 mmol/L (07/12/24 10:53 AM) HCO3 [22-30 mmol/L] 31 mmol/L *HI* (07/12/24 10:53 AM) Cret [0.70-1.30 mg/dL] 1.16 mg/dL (07/12/24 10:53 AM) Glu [74-106 mg/dL] 81 mg/dL (07/12/24 10:53 AM) Hct [39-48 %] 43.5 % (07/12/24 10:53 AM) HDL [>35 mg/dL] 42 mg/dL (07/12/24 10:53 AM) Hgb [13.0-17.0 g/dL] 14.0 g/dL (07/12/24 10:53 AM) K [3.5-5.1 mmol/L] 4.6 mmol/L (07/12/24 10:53 AM) LDL Chol, Calculated [50-130 mg/dL] 61 m g/dL (07/12/24 10:53 AM) MCH [28-33 pg] 30.6 pg (07/12/24 10:53 AM) MCHC [32-36 g/dL] 32.2 g/dL (07/12/24 10:53 AM) MCV [81-96 fL] 95.2 fL (07/12/24 10:53 AM) Na [137-145 mmol/L] 138 mmol/L (07/12/24 10:53 AM) Plts [150-350 K/uL] 248 K/uL (07/12/24 10:53 AM) RBC [4.40-5.60 M/uL] 4.57 M/uL (07/12/24 10:53 AM) T Bili [0.2-1.3 mg/dL] 0.7 mg/dL (07/12/24 10:53 AM) Prot [6.3-8.2 g/dL] 6.8 g/dL (07/12/24 10:53 AM) TG [<200 mg/dL] 82 mg/dL (07/12/24 10:53 AM) TSH [0.47-4.68 uIU/mL] 5.03 uIU/mL 3 *HI* (07/12/24 10:53 AM) WBC [4.0-10.4 K/uL] 9.28 K/uL (07/12/24 10:53 AM) 1Result Comment: Testing Performed By: Dept of Pathology [facility] Stephane Canales, [address] [place] [address], [place] [address] 2Result Comment: Testing Performed By: Dept of Pathology [facility] Stephane Canales, [address] [place] [address], [place] [address] 3Result Comment: Testing Performed By: Dept of Pathology [facility] Stephane Canales, [address] [place] [address], [place] [address] Vital Signs Most recent to oldest [Reference Range]: 1 Height 183.6 cm (07/12/24 9:47 AM) Patient Weight 71.4 kg (07/12/24 9:47 AM) Body Mass Index 21.18 kg/m2 (07/12/24 9:47 AM) Temperature [36.5-37.9 DegC] 36.7 DegC (07/12/24 9:47 AM) Heart Rate 74 bpm (07/12/24 9:47 AM) Respiratory Rate 16 br/min (07/12/24 9:47 AM) Blood Pressure 158/84mmHg (07/12/24 9:47 AM) Social History Social History Type Response Smoking Status Never smoked cigaret yakov Sex Male Sex Representation Male (finding) Outpatient Note * DO Contreras Franklin J: PERFORM, MODIFY, SIGN, VERIFY Event Display: .Outpt Note Authored Date: Patient: RUIZ URENA Age: 89 years Sex: Male : 1935 Associated Diagnoses: None Author: DO Contreras Franklin J Visit Information Visit type: Scheduled follow-up. Chief Complaint 07/12/2024 09:50 EST CPE not AWV. has problems w hammertoes, "too much phlehm in throat" also anklerash and redness, swelling. did swallow tests recently History of Present Illness Here for routine exam. He now has a four-wheeled walker since I saw him last. Had AV james ablation in [place] as well. He has had a persistent rash on his lower legs (distal lower leg and feet) for which he has seen podiatry in [place] before. It looks as if her was given a steroid/antifungal topical, although he really did not note a difference. Has had two swallowing tests - both here and [place] - and has had some speech therapy. Review of Systems Constitutional: Fatigue, Decreased activity. Respiratory: Shortness of breath. Cardiovascular: No chest pain. Gastrointestinal: Aspiration. Integumentary: Rash. Neurologic: Alert and oriented X4. Health Status Allergies: Allergic Reactions (Selected) NKA. Current medications: (Selected) Prescriptions Prescribed Xarelto 20 mg oral tablet: 1 tab, PO, qPM, 90 tab, 3 Refill(s) furosemide 40 mg oral tablet: See Instructions, TAKE 1 TABLET BY MOUTH EVERY DAY, 90 tab, 3 Refill(s) sotalol 160 mg oral tablet: 1 tab, PO, bid, 180 tab, 2 Refill(s) zolpidem 10 mg oral tablet: 1 tab, PO, qhs, Take as instructed, PRN: as needed for sleep, 90 tab, 3Refill(s) Documented Medications Documented Aspir 81 oral delayed release tablet: 1 tab, PO, Daily atorvastatin 40 mg oral tablet: 1 tab, PO, Daily losartan 25 mg oral tablet: 0.5 tab, PO, Daily melatonin: 5 mg, PO, qhs multivitamin: 1 tab, PO, Daily multivitamin: 1 tab, PO, Daily. Problem list: Medical Nocturia more than twice per night / SNOMED CT 626765901 / Confirmed Hammertoe of right foot / SNOMED CT 168787698 / Confirmed BPH (benign prostatic hyperplasia) / SNOMED CT 848591481 / Confirmed Need for shingles vaccine / SNOMED CT 0026945858 / Confirmed Microscopic hematuria / SNOMED CT 774870386 / Confirmed High blood pressure / SNOMED CT 6736749357 / Confirmed Pacemaker / SNOMED CT 4570115620 / Confirmed Hyperlipidemia / SNOMED CT 33595593 / Confirmed Insomnia / SNOMED CT 259264937 / Confirmed Tobacco user / SNOMED CT 671360369 / Confirmed All Problems Nocturia more than twice per night / SNOMED CT 913778833 / Confirmed Hammertoe of right foot / SNOMED CT 329852266 / Confirmed BPH (benign prostatic hyperplasia) / SNOMED CT 517574395 / Confirmed Need for shingles vaccine / SNOMED CT 9626642126 / Confirmed Microscopic hematuria / SNOMED CT 713505007 / Confirmed High blood pressure / SNOMED CT 5401102271 / Confirmed Pacemaker / SNOMED CT 2506078204 / Confirmed Hyperlipidemia / SNOMED CT 14818256 / Confirmed Insomnia / SNOMED CT 511986611 / Confirmed Tobacco user / SNOMED CT 181964445 / Confirmed. Histories Family History: Heart failure Father Hyperlipidemia Mother Alzheimer disease Mother . 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 Physical Examination Vital Signs 07/12/2024 09:47 EST Temperature 36.7 DegC Temperature Route Oral Heart Rate 74 bpm Respiratory Rate 16 br/min Systolic Blood Pressure 158 mmHg Diastolic Blood Pressure 84 mmHg SpO2 99 % Measurements from flowsheet : Measurements 07/12/2024 09:48 EST Osteoporosis Screening Tool -3.52 07/12/2024 09:47 EST Height 183.6 cm Height Method Standing Patient Weight 71.4 kg Weight 71.400 kg Weight Method Standing Scale Body Mass Index 21.18 kg/m2 General: Alert and oriented, No acute distress. Eye: Pupils are equal, round and reactive to light, Extraocular movements are intact, Normal conjunctiva. HENT: Normocephalic, Normal hearing. Neck: Supple, Non-tender. Respiratory: Lungs are clear to auscultation, Respirations are non-labored. Cardiovascular: Normal rate, Regular rhythm. Integumentary: Warm, Dry, [place], B/L lower ankles with larry appearance of venous stasis, no acute infection/cellulitis. On the lateral left lower leg, polymorphic slightly raised rash without central clearing or scale.. Neurologic: Alert, Oriented, Normal sensory. Cognition and Speech: Oriented, Speech clear and coherent. Psychiatric: Cooperative, Appropriate mood & affect. Health Maintenance Health Maintenance Pending (in the next year) OverDue Medicare Annual Wellness Visit due 05/29/22 and every 1 year Adult Influenza Vaccine due 02/28/24 and every 1 year Due Adult COVID-19 Vaccination due 07/12/24 Unknown Frequency Adult Social Determinants of Health Screening due 07/12/24 Unknown Frequency Adult Tdap/Td Vaccine due 07/12/24 Unknown Frequency Falls Plan of Care due 07/12/24 Unknown Frequency Shingles Vaccine due 07/12/24 One-time only Satisfied (in the past 1 year) Satisfied Body Mass Index on 07/12/24. Satisfied by ANGELICA Andrade Kathryn Impression and Plan Diagnosis Hammertoe of right foot (MIG31-NS M20.41, Discharge, Medical). Atrial fibrillation (TSN71-FO I48.91, Discharge, Medical). High blood pressure (MSB71-VJ I10, Discharge, Medical). Hyperlipidemia (TTD81-HT E78.5, Discharge, Medical). Plan: Paroxysmal Atrial Fib Exam today is unremarkable, regular rate and rhythm. He has cardiology both here and in [place]; cardiology note from May reviewed Continue current mediations Recommend BMP to check serum potassium and assure preserved renal function He has some LE edema, and compression hose would be helpful, although he has found this problematicto wear Encouraged elevation of LE for at least some part of the day Rash This is not new; I can see why podiatry tried steroid/antifungal combination, but does not seem to have made much of an improvement He has a dermatology appointment upcoming; discussed they may opt to biopsy for diagnosis (if smallenough, probably could be done without holding DOAC, which would be optimal) Post CVA Fortunately, 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 Orders PowerOrders Laboratory: TSH Request (Order): Routine, 07/12/2024 10:33 EST, Requested Timeframe First Available Lipid Profile Request (Order): Routine, 07/12/2024 10:33 EST, Requested Timeframe First Available, Fasting CMP Request (Order): Routine, 07/12/2024 10:33 EST, Requested Timeframe First Available CBC w Platelets and Diff Request (Order): Routine, 07/12/2024 10:33 EST, Requested Timeframe First Available. PowerOrders Patient Care Ambulatory: Follow Up Appointment Ambulatory (Order): In 1 Year, Appointment Type In Office, 40, Follow up WithDO Contreras Franklin J Evaluation and Management: [id number] Outpatient Visit Est Lvl 4 (Order): 07/12/2024 10:36 EST, FAMILY MEDICINE, High blood pressure | Atrial fibrillation | Hyperlipidemia. Professional Services Total time spent today (review of outside records and labs and face to face): 36 minutes Electronic Signature on File Electronically Reviewed/Signed by: Antonio Contreras DO Author Signature Dt/Tm:07/12/2024 10:05 PM Department of Family Medicine [facility] Patient Care team information Care Team Personnel Name: DO Contreras Franklin J Position: Physician - Family Med Member Role: Primary Care Provider Address: [address] [place] [address] [place] Name: PENNIE Davis Shari A Position: Nurse Pract - Family Med Member Role: Lifetime Relationship Address: [address] [place] [address] [place] Care Team Related Persons Name: AIMEE HARE
[2024-07-20 09:11] LABS: Hemoglobin 13.2 g/dl (14.0-18.0); Mean Corpuscular Hemoglobin 29.8 pg (25.0-34.0); Mean Corpuscular Volume 90.3 fL (80.0-100.0); Mean Platelet Volume 10.8 fL (9.4-12.4); Platelet Count 213 K/uL (130-400); RDW Coefficient of Variation 15.4 % (11.5-14.5); RDW Standard Deviation 50.4 fL (36.4-46.3); Red Blood Count 4.43 M/uL (4.70-6.10); White Blood Count 7.77 K/ul (4.8-10.8)
[2024-07-20] MEDS: ASPIRIN 81 MG ECTAB PO SCH (09:14)
[2024-07-20] MEDS: AMOXICILLIN/CLAVULANATE 875 MG TAB PO SCH (09:14)
[2024-07-20] MEDS: FUROSEMIDE 20 MG TAB PO SCH (09:15)
[2024-07-20] MEDS: CHOLECALCIFEROL 25 MCG (1000 UNITS) TAB PO SCH (09:15)
[2024-07-20] MEDS: LOSARTAN POTASSIUM 25 MG TAB PO SCH (09:15)
[2024-07-20 09:28] LABS: BUN Creatinine Ratio 19.7 (10-20); Calcium 8.8 mg/dl (8.6-10.3); Chol HDL Ratio 3.6 (0-5); Creatinine Clr Calc Pharmacy 39.2 ml/min; Magnesium 2.1 mg/dl (1.7-2.4); Potassium 3.9 mmol/L (3.5-5.1)
--- NOTE | 2024-07-20 09:33 | Neurology Consultation ---
Date of Consultation July 20, 2024 Assessment & Plan (1) Facial droop: History of Present Illness Attending Physician: Selina Butler MD History of Present Illness pt this morning feeling well. no face droop. mri brain negative. known CTA findings of stenosis. pt feeling well. chart reviewed. admission HPI: Patient is an 89-year-old male with a past medical history of CVA, A-fib on Eliquis and pacemaker status, CAD, hyperlipidemia, hypertension. He presents today due to a facial droop that his noticed when he woke up this morning. The patient stated that he had difficulty waking up, he feels fatigued. He was seen by his dentist yesterday who prescribed him penicillin for right sided dental caries. He questions if his facial droop is caused by his ongoing dental concerns. He denies weakness, sensory deficits, ambulatory dysfunction, decreased strength. He also has a history of aspirating, he is on a soft, easy to chew diet. He does endorse dyspnea and chills that began yesterday. He did not take his temperature at home. Patient denies headache, dizziness, lightheadedness, vision changes, rhinorrhea, sore throat, cough, sputum production, chest pain, abdominal pain, nausea, vomiting, diarrhea, constipation, edema, numbness, tingling. Him and his live in [facility] 6 months of the year, they are planning to return to [place]. They would like a follow-up arranged in [place]. Allergies Allergy/AdvReac Type Severity Reaction Status Date / Time Milk Containing Products Allergy Severe Cow's Unverified 07/19/24 13:28 (Dairy) cream/Butter/Cream - GI Upset Home Medications Medication Instructions Recorded Confirmed Type aspirin 81 mg chewable tablet 81 mg PO DAILY #30 tabs 05/10/19 07/19/24 History rivaroxaban 20 mg tablet 20 mg PO DAILY #90 tabs 05/10/19 07/19/24 History zolpidem 10 mg tablet 10 mg PO HS PRN sleep 05/10/19 07/19/24 History cholecalciferol (vitamin D3) 50 50 mcg PO DAILY 07/08/22 07/19/24 History mcg (2,000 unit) capsule (Vitamin D3) multivitamin 1 tab PO DAILY 11/08/22 11/19/24 History furosemide 20 mg tablet 20 mg PO DAILY 05/03/24 07/19/24 History atorvastatin 40 mg tablet 40 mg PO HS 07/19/24 07/19/24 History losartan 25 mg tablet 12.5 mg PO DAILY 07/19/24 07/19/24 History penicillin V potassium 500 mg 500 mg PO QID 07/19/24 07/19/24 History tablet sotalol 80 mg tablet 80 mg PO BID 07/19/24 07/19/24 History Patient History Medical History Diverticulitis Hernia, inguinal, right Social History Smoking Status: Never smoker Tobacco Type: Pipe and Cigars Hx Alcohol Use: No Hx Substance Use: No Preferred Language: [place] Communication Ability: Effective Quality Assurance Qa Lab Analyst Required: No Beliefs That Will Affect Care: None Current Living Situation: Spouse Other Information That Helps Us Care for You: No Feels Safe at Home: Yes Safety Concerns: Feels Safe At This Time Exam (Neuro) Physical Exam: HEENT: normocephalic grossly Neuro: Mental: AOx4, fluent speech, normal comprehension, no apraxia, CN: PERRL, Full EOM, symmetric face, midline T/U/P, grossly full ROM neck Motor: No abnormal movements, normal tone, 5/5 t/o bilaterally Sens: intact to touch b/l grossly Coord: intact FNT b/l DTR: 2+ sym b/l Impression: 89 yo male with transient rt face droop in setting of rt dental issues and known chronic ICA and vertebral vessel stenosis. Unclear as to etiology, TIA vs peripheral facial nerve palsy. pt clinically stable. Recommendations: pending echo, if negative, I am ok with pt going home as he is very eager to go home. continue xarelto and ASA as now. avoid dehydration and hypotension. routine stroke risk modification. call again if new question. Chart reviewed I have spent more than 50% educating patient about potential diagnosis and neurological evaluation and coordinating care with patient's treatment team. Total time spent (including chart review and coordination of care): 45 min (this includes chart review). Results & Data Vital Signs (Past 12 Hours) Vital Signs Temp Pulse Pulse Resp BP Pulse Ox O2 Del Method 07/20/24 08:05 36.6 C 68 18 153/84 H 94 Room Air 07/20/24 02:41 36.6 C 72 18 129/68 97 Room Air 07/19/24 22:25 36.8 C 70 18 111/65 92 Room Air 07/19/24 21:58 71 PG Care Time/CCT Total # of Minutes Spent Total Time Spent with Patient: Total time spent is greater than 50% in coordination of care (as documented) at patient's floor/unit and/or counseling patient: Coding Level of Care Code 90129 IN/OBS CONSULT LVL 3,45M Diagnoses Facial droop R29.810
[2024-07-20 10:37] LABS: Estimated Average Glucose 126 mg/dl
[2024-07-20 15:39] VITALS: BP 144/77; TEMP 97.7; O2SAT 96
[2024-07-20 15:54] VITALS: PULSE 70
--- NOTE | 2024-07-20 16:24 | XCELERA ---
[id number]
[2024-07-20] MEDS: RIVAROXABAN 15 MG TAB PO SCH (16:31)
--- NOTE | 2024-07-20 19:18 | Discharge Summary ---
Discharge Summary Date of Service July 20, 2024 Principal Dx & Hospital Course #1 = Principal Diagnosis (1) Stroke-like symptoms: Presented with right sided facial droop -- stroke workup negative -- TIA. Hx CVA ~ 3 yrs ago - CT head negative for acute changes, chronic left thalamic infarct - Neck/head CTA showed severe atherosclerosis of right carotid bulb, high-grade stenosis within proximal cervical segment right ICA, high-grade stenosis verteb ral arteries bilaterally - Brain MRI with no acute intracranial abnormalities. No acute or subacute infarct. - Echo: EF 60-65%, no wma, mild MR, mild-mod TR, small pericardial effusion without evidence of tamponade. Bubble study deferred as patient greater than 65 years old - Lipid panel WNL - A1c 6.0% - Homocysteine level pending at the time of discharge - Continue aspirin 81 mg daily - Continue Xarelto 15 mg daily. 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 - Stroke-like symptoms resolved (2) Pneumonia: History of aspiration, on easy to chew diet likely early stages of aspiration pneumonia however he is asymptomatic with this - leukocytosis of 11.56 on admission; resolved - CXR showing mild interstitial pulmonary edema, moderate size pleural effusion, RLL atelectasis vs pneumonia - continue Augmentin 875 BID x 5 days - Recommend repeat CXR in 4 weeks to ensure resolution of aspiration pneumonia and possible pleural effusion-- defer order to PCP (3) Dental caries: diagnosed 07/18, started penicillin with dentist - face CT showed several dental caries, multiple absent teeth, right facial inflammation consistent with cellulitis - no concern for abscess at this time - will discontinue penicillin with start of Augmentin, will cover for dental caries (4) Coronary artery disease: History of LAD PCI 2007, RCA PCI 2008 - Continue baby aspirin and atorvastatin 40 (5) Paroxysmal atrial fibrillation: pacemaker status - EKG on admission Showing ventricular paced rhythm - Continue Xarelto - dose decrease from 20mg to 15mg as per pharmacy rec with CrCl - continue sotalol - Reviewed telemetry, no events (6) Hypertension: - Continue home Lasix, losartan Plan VTE ppx: continue Xarelto Diet: easy to chew, heart healthy diet Code status: DNR/DNI Disposition-stable for discharge to home Notes For Next Care Provider Follow-up homocystine level Repeat CXR in 4 weeks to ensure resolution of aspiration pneumonia Needs vascular surgery evaluation for right carotid endarterectomy Medication Changes From Visit Xarelto decreased to 15 mg daily given CrCl Augmentin x 5 days Admission HPI Per Admitting Provider Patient is an 89-year-old male with a past medical history of CVA, A-fib on Eliquis and pacemaker status, CAD, hyperlipidemia, hypertension. He presents today due to a facial droop that his noticed when he woke up this morning. The patient stated that he had difficulty waking up, he feels fatigued. He was seen by his dentist yesterday who prescribed him penicillin for right sided dental caries. He questions if his facial droop is caused by his ongoing dental concerns. He denies weakness, sensory deficits, ambulatory dysfunction, decreased strength. He also has a history of aspirating, he is on a soft, easy to chew diet. He does endorse dyspnea and chills that began yesterday. He did not take his temperature at home. Patient denies headache, dizziness, lightheadedness, vision changes, rhinorrhea, sore throat, cough, sputum production, chest pain, abdominal pain, nausea, vomiting, diarrhea, constipation, edema, numbness, tingling. Him and his live in [facility] 6 months of the year, they are planning to return to [place]. They would like a follow-up arranged in [place]. Patient's was updated at bedside. Admission Exam Per Admitting Provider The patient is awake, alert and oriented 3, frail, normocephalic and atraumatic, in no acute distress. Non-toxic appearing. HEENT- EOMI, mucous membranes dry. Hearing grossly intact. Heart-normal S1 and S2. No murmurs, rubs or gallops. Lungs-clear bilaterally, no respiratory distress, no accessory muscle use. Abdomen-normal bowel sounds and soft. No ascites noted. Non-tender. Extremities- no clubbing, cyanosis, or edema. Rheumatologic-normal range of motion. Psychiatric-normal affect. Discharge Exam General: No acute distress, nondiaphoretic, well-developed, well-nourished. Skin: The skin was without rashes, erythema, edema, or bruising. Cardiac: Regular rate and rhythm without murmurs gallops or rubs. Pulm: Clear to auscultation bilaterally without wheezes, rales or rhonchi. No retractions or accessory muscle use. Abdominal: Positive bowel sounds x 4. Soft, nontender, without masses or organomegaly. No guarding or rebound tenderness. Neuro: A&O x3. No focal neurological deficits. Discharge Plan Discharge Items Patient Disposition: Home - Self-Care Reason For Visit: STROKE LIKE SX, PNEUMONIA Discharge Diagnosis: TIA, aspiration pneumonia Activity: Resume your previous activity Non-emergency contact: Primary Care Provider Call non-emergency contact if: you have any medication questions and your symptoms worsen Follow-up/Referrals: Antonio Contreras DO [Primary Care Provider] - Diet: Heart Healthy Diet Texture: Easy to Chew Addtl Attending Provider Instructions: Mr. Mayfield, You were admitted to the hospital due to stroke-like symptoms. Your stroke work-up was NEGATIVE (you did NOT have a stroke). You had a TIA (transient ischemic attack), which is when blood flow is decreased to part of your brain for a short period of time and the symptoms resolve on their own. Imaging did show high-grade stenosis of your right-sided internal carotid artery. We are recommending that you follow-up with both a neurologist and a vascular surgeon outpatient. Since you would like your follow-up care in [place], you can schedule these follow-up appointments. You have been provided with a CD to take to your ekr-bo-emykoiw doctors. Imaging also revealed likely early stage of aspiration pneumonia. You were given an antibiotic for this in the hospital and will continue this antibiotic on discharge for a total of 5 days. It is also recommended that you get a repeat chest x-ray in 4 weeks to ensure resolution of this pneumonia. Upon discharge from the hospital: * Continue taking your Xarelto. Your dose has been adjusted to 15 mg daily (previously on 20 mg daily) given your kidney function. This updated prescription has been sent to the [facility] pharmacy on [facility]. * Continue taking your Aspirin 81 mg daily. * Continue your Atorvastatin 40 mg daily. * Take Augmentin 1 tablet twice daily x 5 days total. It is important to complete this course of antibiotics even if you feel better. This is to prevent the infection for worsening or returning. This prescription has been sent to the [facility] pharmacy on [facility]. * Follow-up with your PCP in 1 week. * Follow-up with a neurologist and vascular surgeon outpatient in [place]. You can schedule these appointments. * Get follow-up chest x-ray in 4 weeks to ensure resolution of your pneumonia. Please return to the hospital if you experience any of the following: Weakne ss/tingling/loss of feeling of 1 side of your body or face, sudden double vision or trouble seeing in 1 or both eyes, sudden trouble talking or slurred speech, trouble understanding what other people are saying, sudden/severe headache, dizziness, loss of balance, passing out, seizure, chest pain, palpitations, shortness of breath, difficulty breathing. It was a pleasure taking care of you while you were in the hospital, Sada Armstrong PA-C B.E.F.A.S.T. is an easy way to remember the signs of stroke. When you see these signs, you know that you need to call 911 fast. B.E. F.A.S.T. stands for: * B is for balance. Sudden loss of balance or coordination. * E is for eyes. Vision changes in one or both eyes. * F is for face drooping. One side of the face is drooping or numb. When the person smiles, the smile is uneven. * A is for arm weakness. One arm is weak or numb. When the person lifts both arms at the same time, one arm may drift downward. * S is for speech difficulty. You may notice slurred speech or trouble speaking. The person can't repeat a simple sentence correctly when asked. * T is for time to call 911. If someone shows any of these symptoms, even if they go away, call 911 right away. Make note of the time the symptoms first appeared. Pending Studies at Discharge: Yes Studies:: Homocysteine level Stand-Alone Forms: My [facility] [employer], Smoking Cessation Medications and DC Order Prescriptions: New amoxicillin-pot clavulanate 875-125 mg Tablet 1 tab PO BIDM Qty: 9 0RF Xarelto 15 mg Tablet 15 mg PO QDD Qty: 30 0RF Continued aspirin 81 mg tablet,chewable 81 mg PO DAILY Qty: 30 zolpidem 10 mg tablet 10 mg PO HS PRN (Reason: sleep) furosemide 20 mg tablet 20 mg PO DAILY multivitamin Tablet 1 tab PO DAILY cholecalciferol (vitamin D3) [Vitamin D3] 50 mcg (2,000 unit) Capsule 50 mcg PO DAILY sotalol 80 mg tablet 80 mg PO BID atorvastatin 40 mg Tablet 40 mg PO HS losartan 25 mg Tablet 12.5 mg PO DAILY Held penicillin V potassium 500 mg tablet 500 mg PO QID Hold Instructions: Resume on 07/25/24. Rx Instructions: Start Date 07/18/24 x7 day supply Discontinued Xarelto 20 mg tablet 20 mg PO DAILY Qty: 90 Discharge Orders: Discharge Order (Routine); Ordered 07/20/24 Ordered By: Sada Cornejo/Other Patient Handouts: TIA Dc Admission Data Admit Date/Time: 07/19/24 14:10 Attending Provider: Selina Butler Admit Provider: Esau Johnson Primary Care Provider: Antonio Contreras Other Providers: Esau Johnson; Darrick Stein Other Interventions: Discharge Summary Assessment (RN) Last Done: 07/20/24 17:03 Hospital Stay Data Consultations 07/19/24 13:14 ED Decision to Admit Stat 07/19/24 18:22 Consult Neurology Routine 07/20/24 16:31 Burn CD for patient Routine Diagnostic Imagining Performed 07/19/24 10:22 CT angio head w con Stat CT angio neck with con Stat CT facial bones w con Stat CT head/brain wo con Stat 07/19/24 13:14 MR brain wo con Stat Echocardiogram Pending Results Patient Have Any Pending Studies at Discharge: Yes Discharge Instructions Given to Patient (Per Discharging Provider) Mr. Mayfield, You were admitted to the hospital due to stroke-like symptoms. Your stroke work-up was NEGATIVE (you did NOT have a stroke). You had a TIA (transient ischemic attack), which is when blood flow is decreased to part of your brain for a short period of time and the symptoms resolve on their own. Imaging did show high-grade stenosis of your right-sided internal carotid artery. We are recommending that you follow-up with both a neurologist and a vascular surgeon outpatient. Since you would like your follow-up care in [place], you can schedule these follow-up appointments. You have been provided with a CD to take to your ewz-hb-jaonfmt doctors. Imaging also revealed likely early stage of aspiration pneumonia. You were given an antibiotic for this in the hospital and will continue this antibiotic on discharge for a total of 5 days. It is also recommended that you get a repeat chest x-ray in 4 weeks to ensure resolution of this pneumonia. Upon discharge from the hospital: * Continue taking your Xarelto. Your dose has been adjusted to 15 mg daily (previously on 20 mg daily) given your kidney function. This updated prescription has been sent to the [facility] pharmacy on [facility]. * Continue taking your Aspirin 81 mg daily. * Continue your Atorvastatin 40 mg daily. * Take Augmentin 1 tablet twice daily x 5 days total. It is important to complete this course of antibiotics even if you feel better. This is to prevent the infection for worsening or returning. This prescription has been sent to the [facility] pharmacy on [facility]. * Follow-up with your PCP in 1 week. * Follow-up with a neurologist and vascular surgeon outpatient in [place]. You can schedule these appointments. * Get follow-up chest x-ray in 4 weeks to ensure resolution of your pneumonia. Please return to the hospital if you experience any of the following: Weakness/tingling/loss of feeling of 1 side of your body or face, sudden double vision or trouble seeing in 1 or both eyes, sudden trouble talking or slurred speech, trouble understanding what other people are saying, sudden/severe headache, dizziness, loss of balance, passing out, seizure, chest pain, palpitations, shortness of breath, difficulty breathing. It was a pleasure taking care of you while you were in the hospital, TRAVIS Cartagena.E.F.A.S.T. is an easy way to remember the signs of stroke. When you see these signs, you know that you need to call 911 fast. [place]. F.A.S.T. stands for: * B is for balance. Sudden loss of balance or coordination. * E is for eyes. Vision changes in one or both eyes. * F is for face drooping. One side of the face is drooping or numb. When the person smiles, the smile is uneven. * A is for arm weakness. One arm is weak or numb. When the person lifts both arms at the same time, one arm may drift downward. * S is for speech difficulty. You may notice slurred speech or trouble speaking. The person can't repeat a simple sentence correctly when asked. * T is for time to call 911. If someone shows any of these symptoms, even if they go away, call 911 right away. Make note of the time the symptoms first appeared. Supervising Physician Co-Signing Physician Notes PA Supervision Note: I personally saw and examined the patient. I verified all phelps points and agree with ELIZA Armstrong with the following exceptions and/or additions: S-patient feeling much better, no further facial droop. Dental pain is resolved. He has no other complaints O- Vitals reviewed Gen: AAOx3, NAD HEENT: Anicteric sclerae, EOMI, no facial droop CV: RRR no mgr nl S1S2 Pulm: CTAB no wcr Ext: No edema Skin: No rashes, warm/dry Neuro: Full strength throughout, cranial nerves II through XII intact CT angiogram head and neck, MRI brain, echocardiogram reviewed A/C-41-dspu-old male here with TIA causing right sided facial droop which is now resolved Fortunately no stroke on MRI but does have right sided severe internal carotid artery stenosis which needs intervention most likely although it is not symptomatic at this time He does have bilateral significant vertebral artery stenosis Continue aspirin, Xarelto, high intensity statin Continue good blood pressure control Follow-up with vascular surgery and neurology as an outpatient in [place] Total Time Total Time Spent Total Time Spent (In Minutes): Greater than 30 minutes spent completing this discharge process including direct patient care, medication reconciliation, documentation, review of labs and images, and coordination of care. Coding Level of Care Code 40552 INP/OBS DISCH >30 MIN Diagnoses Stroke-like symptoms R29.90 Pneumonia J18.9 Laterality: right Lung location: lower lobe of lung Pneumonia type: due to unspecified organism Dental caries K02.9 Coronary artery disease I25.10 Paroxysmal atrial fibrillation I48.0 Hypertension I10
[2024-07-20] MEDS ORDERED: ATORVASTATIN 40 MG TAB PO SCH (21:00)
== END 2024-07-20 17:34 | disposition home or self-care (01) ==
LOC: 2N 10:22 → ED 10:22 → SUATTDRO 14:10 → 2N 16:12